=== PATIENT | female | born 1990 | race Caucasian/White ===

== ENCOUNTER 2018-10-31 19:23 | Emergency (ER) | payer BC, MEDICAID ==
[~2018-10-31] VITALS: Ht 154.9 cm; Wt 97.1 kg
[2018-10-31 19:32] VITALS: BP 124/80
[2018-10-31 19:35] VITALS: BP 124/80
--- NOTE | 2018-10-31 19:39 | NUR ---
PT AMBULATED TO LOBBY WITH STEADY GAIT ACCOMPANIED BY . AWAITING AVAILABLE BED.
--- NOTE | 2018-10-31 20:20 | NUR ---
28/F PRESENTED TO ED WITH C/O RASH TO LEFT FOREARM THAT STARTED X 9 DAYS AGO. 3/10 PAIN DESCRIBED THROBBING. STATES ITCHINESS AT SITE. PT STATES "IT STARTED WITH 2 SMALL DOTS". RASH HAS SINCE SPREAD TO UPPER LEFT ARM AND LEFT SIDE ABDOMEN X 3 DAYS AGO. CLUSTERS OF SMALL BLISTERS NOTED. PT REPORTS PUS DRAINING THIS AM. DENIES FEVER, NVD. STATES SHE HAS BEEN USING BENADRYL AND HYDROCORTISONE BUT NO RELIEF. NO SOB. DENIES PAST MED HX. DENIES RX. ALLERGIES TO VICODIN. WILL CONTINUE TO MONITOR.
[2018-10-31] MEDS: SULFAMETH/TRIMETH DS 800/160MG 1 TAB PO ONE (21:08)
[2018-10-31] MEDS: CEPHALEXIN 500 MG CAP PO ONE (21:08)
--- NOTE | 2018-10-31 21:13 | NUR ---
Patient discharged with v/s stable. Written and verbal after care instructions given and explained. Patient alert, oriented and verbalized understanding of instructions. Ambulatory with steady gait. All questions addressed prior to discharge. ID band removed. Patient advised to follow up with PMD. Rx of keflex, bactrim, and motrin given. Patient educated on indication of medication including possible reaction and side effects. Opportunity to ask questions provided and answered.
== END 2018-10-31 21:13 | disposition home or self-care (01) ==
LOC: MED 19:23
DX: L03.114 Cellulitis of left upper limb (principal); Z88.5 Allergy status to narcotic agent
CPT/HCPCS: 99283

== ENCOUNTER 2022-01-23 18:13 | Emergency (ER) | payer MEDICAID ==
[~2022-01-23] VITALS: Ht 154.9 cm; Wt 99.3 kg
[2022-01-23 19:00] VITALS: BP 119/54
--- NOTE | 2022-01-23 19:06 | NUR ---
Pt ambulated to lobby.
[2022-01-23] MEDS ORDERED: DEXAMETHASONE 4 MG TAB PO ONE (20:00)
[2022-01-23] MEDS ORDERED: NACL 0.9% 1,000 ML IV ONE (20:10)
[2022-01-23] MEDS ORDERED: DEXAMETHASONE 4 MG TAB ONE (22:04)
[2022-01-23] MEDS ORDERED: ACETAMINOPHEN 325 MG TAB PO ONE (22:15)
[2022-01-23] MEDS ORDERED: DIPH25TA53 PO (23:22)
[2022-01-23 23:40] VITALS: BP 110/60
--- NOTE | 2022-01-23 23:40 | NUR ---
Patient discharged with v/s stable. Written and verbal after care instructions given and explained. Patient alert, oriented and verbalized understanding of instructions. Ambulatory with steady gait. All questions addressed prior to discharge. ID band removed. Patient advised to follow up with PMD. Rx of BENADRYL given. Patient educated on indication of medication including possible reaction and side effects. Opportunity to ask questions provided and answered.
== END 2022-01-23 23:40 | disposition home or self-care (01) ==
LOC: MED 18:13
DX: B34.9 Viral infection, unspecified (principal); Z20.822 Contact with and (suspected) exposure to COVID-19; R21 Rash and other nonspecific skin eruption; Z88.5 Allergy status to narcotic agent; Z79.1 Long term (current) use of non-steroidal anti-inflammatories (NSAID)
CPT/HCPCS: 36415; 87426; 87804; 96360; 99284; J7030; Q0163